=== PATIENT | male | born 2005 | race Hispanic/Latino ===

== ENCOUNTER 2025-01-01 01:06 | Emergency (ER) | payer SELFPAY ==
--- NOTE | 2025-01-01 02:06 | ER ---
Nurse's Notes [facility] Name: Martinez Myles Age: 19 yrs Sex: Male : 2005 Arrival Date: 01/01/2025 Time: 01:06 Bed IW4 Private MD: Diagnosis: Strain of trapezius muscle Presentation: 01/01 01:25 Chief complaint: Patient states: TWO WEEKS AGO WAS PLAYING VOLLEYBALL AND I STRETCHED ha1 MY BODY TO MUCH AND IT CAUSED ME PAIN ON THE NECK AND BACK. PAIN IS NOT GETTING BETTER. 01:25 Coronavirus screen: Client denies travel out of the [place] in the last 14 days. Ebola ha1 Screen: No symptoms or risks identified at this time. Initial Sepsis Screen: Does the patient meet any 2 criteria? No. Patient's initial sepsis screen is negative. Does the patient have a suspected source of infection? No. Patient's initial sepsis screen is negative. Risk Assessment: Do you want to hurt yourself or someone else? Patient reports no desire to harm self or others. Onset of symptoms was January 01, 2025. 01:25 Method Of Arrival: Ambulatory ha1 01:25 Acuity: RIVKA 4 ha1 Triage Assessment: 01:25 General: Appears comfortable, Behavior is calm, cooperative. Pain: Complains of pain in ha1 LEFT SIDE OF NECK Pain currently is 4 out of 10 on a pain scale. Quality of pain is described as aching. Neuro: Level of Consciousness is awake, alert, obeys commands, Oriented to person, place, time, situation. Cardiovascular: Capillary refill < 3 seconds Patient's skin is warm and dry. Respiratory: Airway is patent Respiratory effort is even, unlabored, Respiratory pattern is regular, symmetrical. GI: No signs and/or symptoms were reported involving the gastrointestinal system. Abdomen is round non-distended. : No signs and/or symptoms were reported regarding the genitourinary system. Derm: Skin is pink, warm \T\ dry. Musculoskeletal: Circulation, motion, and sensation intact. Range of motion: Reports pain in LEFT SIDE OF NECK. Historical: - Allergies: 01: No Known Allergies; ha1 - PMHx: : None; ha1 - Immunization history:: Adult Immunizations up to date. - Infectious Disease History:: Denies. - Social history:: Smoking status: Reported history of juuling and/or vaping. Screenin:25 [facility] ED Fall Risk Assessment (Adult) History of falling in the last 3 months, ha1 including since admission No falls in past 3 months (0 pts) Confusion or Disorientation No (0 pts) Intoxicated or Sedated No (0 pts) Impaired Gait No (0 pts) Mobility Assist Device Used No (0 pt) Altered Elimination No (0 pt) Score/Fall Risk Level 0 - 2 = Low Risk Oriented to surroundings, Maintained a safe environment, Educated pt \T\ family on fall prevention, incl call for assistance when getting out of bed, Hourly rounding (assess needs \T\ fall precautionary measures) done. Abuse screen: Denies threats or abuse. Denies injuries from another. Nutritional screening: No deficits noted. Tuberculosis screening: No symptoms or risk factors identified. Assessment: 02:36 Reassessment: Patient and/or family updated on plan of care and expected duration. Pain ha1 level reassessed. Patient is alert, oriented x 3, equal unlabored respirations, skin warm/dry/pink. Patient states feeling better. Patient states symptoms have improved. Vital Signs: 01:25 BP 137 / 86; Pulse 70; Resp 18 S; Temp 98.3; Pulse Ox 100% on R/A; Weight 74.84 kg; ha1 Height 6 ft. 0 in. ; Pain 4/10; 01:25 Body Mass Index 22.38 (74.84 kg, 182.88 cm) ha1 01:25 Pain Scale: Adult ha1 ED Course: 01:25 Patient has correct armband on for positive identification. Provided Education on: PLAN ha1 OF CARE . 01:26 Patient arrived in ED. gm2 01:29 Earnestine Cazares PA-C is PHCP. sb4 01:29 Sunil Wadsworth MD is Attending Physician. sb4 02:01 Triage completed. ha1 02:04 Arm band placed on right wrist. ha1 02:04 No provider procedures requiring assistance completed. Patient did not have IV access ha1 during this emergency room visit. Administered Medications: 02:10 Drug: Dexamethasone IM 10 mg IM once Route: IM; Site: left deltoid; ha1 02:36 Follow up: Response: No adverse reaction; Marked relief of symptoms; Pain is decreased ha1 02:10 Drug: Cyclobenzaprine PO 10 mg PO once Route: PO; ha1 02:36 Follow up: Response: No adverse reaction; Marked relief of symptoms ha1 02:12 Drug: Ketorolac IM 30 mg IM once Route: IM; Site: right deltoid; ha1 02:36 Follow up: Response: No adverse reaction; Marked relief of symptoms; Pain is decreased ha1 Medication: 02:04 VIS not applicable for this client. ha1 Outcome: 02:05 Discharge ordered by MD. lopez 02:37 Discharged to home ambulatory, with family, ha1 02:37 Condition: stable 02:37 Discharge instructions given to patient, family, Instructed on discharge instructions, follow up and referral plans. medication usage, Demonstrated understanding of instructions, follow-up care, medications, Prescriptions given X 3, 02:37 Patient left the ED. ha1 Signatures: Teresita Duarte RN RN ha1 Earnestine Cazares PA-C PABradley [id number] Mayra Romano 2
--- NOTE | 2025-01-01 02:06 | EDPHYS ---
Physician Documentation [facility] Name: Martinez Myles Age: 19 yrs Sex: Male : 2005 Arrival Date: 01/01/2025 Time: 01:06 Bed IW4 Private MD: ED Physician Sunil Wadsworth HPI: 01/01 03:25 This 19 yrs old Male presents to ER via Ambulatory with complaints of Neck sb4 Pain, >24Hrs Old. 03:26 Patient states that 2 weeks ago he was playing volleyball when he dove awkwardly and sb4 injured his upper back. He states that it has been sore ever since. He states that it has improved mildly over time but it is still causing him pain. States he has taken Tylenol and Motrin sporadically, has not taken any in the past 3 to 4 days. Denies any numbness or tingling, no headache, blurry vision, no radiation down the arms or legs. Historical: - Allergies: 01:25 No Known Allergies; ha1 - PMHx: 01:25 None; ha1 - Immunization history:: Adult Immunizations up to date. - Infectious Disease History:: Denies. - Social history:: Smoking status: Reported history of juuling and/or vaping. ROS: 03:26 Constitutional: Negative for fever, chills, and weight loss, sb4 03:26 Back: Positive for injury or acute deformity, of the left trapezius and right trapezius, 03:26 All other systems are negative, Exam: 03:26 Constitutional: This is a well developed, well nourished patient who is awake, alert, sb4 and in no acute distress. Head/Face: Normocephalic, atraumatic. Eyes: Extra-ocular motions intact. Periorbital areas with no swelling, redness, or edema. ENT: Mucous membranes moist. Neck: Supple, full range of motion without nuchal rigidity, or vertebral point tenderness. Respiratory: No increased work of breathing, no retractions or nasal flaring. Back: No spinal tenderness. No costovertebral tenderness. Full range of motion. Skin: Warm, dry with normal turgor. Normal color with no rashes, no lesions, and no evidence of cellulitis. 03:26 Special observations: complaints out of proportion to exam, no evidence of discomfort, sb4 Vital Signs: 01:25 BP 137 / 86; Pulse 70; Resp 18 S; Temp 98.3; Pulse Ox 100% on R/A; Weight 74.84 kg; ha1 Height 6 ft. 0 in. ; Pain 4/10; 01:25 Body Mass Index 22.38 (74.84 kg, 182.88 cm) ha1 01:25 Pain Scale: Adult ha1 MDM: 01:30 Medical Screening Exam initiated sb4 03:26 Differential diagnosis: torticollis, muscle strain, muscle spasm. Data reviewed: vital sb4 signs, nurses notes, and as a result, I will discharge patient. Test considered but Not performed: X-ray: no bony tenderness, clinically no fracture. Counseling: I had a detailed discussion with the patient and/or guardian regarding the historical points, exam findings, and any diagnostic results supporting the discharge/admit diagnosis, the need for outpatient follow up, for definitive care, to return to the emergency department if symptoms worsen or persist or if there are any questions or concerns that arise at home. Administered Medications: 02:10 Drug: Dexamethasone IM 10 mg IM once Route: IM; Site: left deltoid; ha1 02:36 Follow up: Response: No adverse reaction; Marked relief of symptoms; Pain is decreased ha1 02:10 Drug: Cyclobenzaprine PO 10 mg PO once Route: PO; ha1 02:36 Follow up: Response: No adverse reaction; Marked relief of symptoms ha1 02:12 Drug: Ketorolac IM 30 mg IM once Route: IM; Site: right deltoid; ha1 02:36 Follow up: Response: No adverse reaction; Marked relief of symptoms; Pain is decreased ha1 Disposition: 01/02 00:46 Co-signature as Attending Physician, Sunil Wadsworth MD I agree with the assessment sp4 and plan of care. I reviewed the patient's care provided by Advanced Practice Provider \T\ agree w/ the diagnosis \T\ care plan. I personally saw the pt \T\ performed a substantive portion of the visit, incldng all aspects of the (History/Exam/Medical Decision Making). Disposition Summary: 01/01/25 02:05 Discharge Ordered Notes: Location: Home sb4 Problem: an ongoing problem sb4 Symptoms: have improved sb4 Condition: Stable sb4 Diagnosis - Strain of trapezius muscle sb4 Followup: sb4 - With: Private Physician - When: 1 week - Reason: Recheck today's complaints, Re-evaluation by your physician Discharge Instructions: - Discharge Summary Sheet sb4 - Muscle Strain, Niro-va-Beap sb4 - Neck Exercises sb4 Forms: - Patient Portal Instructions sb4 - Leadership Thank You Letter sb4 Prescriptions: - Cyclobenzaprine 10 mg Oral Tablet - take 1 tablet ORAL route every 8 hours As needed; 30 tablet; Refills: 0, sb4 Product Selection Permitted - Diclofenac Sodium 75 mg Oral Tablet Sustained Release - take 1 tablet ORAL route 2 times per day; 30 tablet; Refills: 0, Product sb4 Selection Permitted - Medrol (Watson) 4 mg Oral Tablets, Dose Pack - take 1 tablet ORAL route as directed - follow package instructions; 1 packet; sb4 Refills: 0, Product Selection Permitted Signatures: Teresita Duarte RN RN ha1 Earnestine Cazares PA-C PA-C sb4 Sunil Wadsworth MD MD sp4
[2025-01-01] MEDS ORDERED: KETOROLAC 30 MG/ML INJ ONE (02:15)
[2025-01-01] MEDS ORDERED: CYCLOBENZAPRINE 10 MG TAB ONE (02:16)
[2025-01-01 08:26] VITALS: BP 137/86; TEMP 98.3; O2SAT 100
== END 2025-01-01 02:37 | disposition home or self-care (01) ==
LOC: ER 01:06
DX: S46.819A Strain of other muscles, fascia and tendons at shoulder and upper arm level, unspecified arm, initial encounter (principal)
CPT/HCPCS: 96372; 99284; J1100; J1885